=== PATIENT | female | born 1980 | race Two or more races ===

== ENCOUNTER 2020-04-16 04:21 | Day surgery (SDC) | payer BC, OTHER ==
[2020-04-15 11:56] VITALS: BMI 27.8
[2020-04-16] MEDS ORDERED: MIDAZOLAM HCL 2 MG/2 ML SINGLE DOSE VIAL ONE (11:49)
[2020-04-16] MEDS ORDERED: PROPOFOL 20 ML ONE ×2 (11:50)
[2020-04-16] MEDS ORDERED: KETOROLAC TROMETHAMINE 30 MG/1 ML VIAL ONE (11:51)
[2020-04-16] MEDS ORDERED: LIDOCAINE HCL/PF 2% SDV 5ML VIAL ONE (11:51)
[2020-04-16] MEDS ORDERED: DEXAMETHASONE SOD PHOSPHATE 4 MG/1 ML VIAL ONE (11:51)
[2020-04-16] MEDS ORDERED: ceFAZolin SODIUM 1 GM VIAL IVPB ONE (12:45)
[2020-04-16] MEDS ORDERED: ceFAZolin SODIUM 1 GM VIAL ONE (12:46)
[2020-04-16] MEDS ORDERED: EPHEDRINE SULFATE/0.9% NACL/PF 50 MG/10 ML SYRINGE NR ONE (13:12)
[2020-04-16] MEDS ORDERED: ONDANSETRON 4 MG/2 ML VIAL IVPUSH PRN (13:33)
[2020-04-16] MEDS ORDERED: ACETAMINOPHEN 500 MG TABLET (FP) PO PRN (13:33)
[2020-04-16] MEDS ORDERED: oxyCODONE HCL 5 MG TABLET PO PRN ×2 (13:33)
[2020-04-16] MEDS ORDERED: ACETAMINOPHEN 325 MG TABLET (FP) PO PRN (13:35)
[2020-04-16] MEDS ORDERED: IBUPROFEN 400 MG TABLET (FP) PO PRN (13:35)
--- NOTE | 2020-04-16 13:35 | OP ---
Operative Note - Note: Operative Date: 04/16/20 Pre-Operative Diagnosis: Menorrhagia. Polyps? Operation: Hysteroscopy. Polypectomies. D and C. Post-Operative Diagnosis: Same as Pre-op Surgeon: Jean Turcios Anesthesiologist/BROADCAST SUPERVISOR: Laura Nicholson Anesthesia: General Specimens Removed: Polyps and EMC. Estimated Blood Loss (mls): 20 Operative Report Dictated: Yes
[2020-04-16] MEDS ORDERED: LACTATED RINGERS SOLUTION 1,000 ML IV SCH (13:45)
--- NOTE | 2020-04-16 13:55 | OP ---
DATE OF OPERATION: DATE OF DICTATION: 04/16/2020 PREOPERATIVE DIAGNOSES: 1. Menorrhagia, dysfunctional uterine bleeding. 2. Endometrial hyperplasia, thick endometrial echo, suspecting polyps. OPERATION: 1. Hysteroscopy. 2. Polypectomies. 3. Dilation and curettage. SURGEON: Lesly Turcios MD ANESTHESIA: General LMA. ANESTHESIOLOGIST: Laura Nicholson MD PROCEDURE & FINDINGS: Under general anesthesia patient was examined. Uterus was upper normal size, anteverted. Adnexa were within normal limits. Following routine prep and drape, cervix was grasped with tenaculum and traction was applied. Os was gently dilated and hysteroscopy was carried out. Multiple polypoid structures were noted in the cavity. Both ostia were identified. Endocervical canal was within normal limits. Saline was allowed to escape from the uterus and os was dilated. Using stone forceps alternating with sharp curettage, multiple fragments of polyp were removed. Procedure was carried out until the uterine cavity was relatively empty. Post polypectomy and post curettage hysteroscopy showed minimal baseline remaines of the polyps, but otherwise cavity was empty. There was mild surface oozing which was to be expected. Procedure was accomplished without any difficulties. Curettage was done very gently not to affect future fertility. Patient was awakened and transferred to PACU comfortable and stable. Blood loss was less than 20 mL. LESLY TURCIOS MD [id number] MTDD
[2020-04-16 16:01] VITALS: BP 118/67; PULSE 77; TEMP 98.2
--- NOTE | 2020-04-17 11:40 | PATH ---
Surgical Pathology Report Patient Name: CLAUDIA CHAIDEZ [facility]. Rec. #: [id number] /Age/Gender: 1980 (Age: 40) / F Account: [id number] Location: [facility] SURGICAL Taken: 04/16/2020 Received: 04/16/2020 Reported: 04/17/2020 Physicians: Jean Turcios MD Specimen(s) Received UTERINE POLYP AND CURETTINGS Clinical History Leiomyoma of uterus Final Diagnosis ENDOMETRIAL CURETTINGS AND POLYPS: POLYPOID FRAGMENTS OF SECRETORY TYPE ENDOMETRIUM. Electronically Signed Redd Wilson M.D. Gross Description Received in formalin labeled "endometrial curettings and polyps," is a 3.0 x 2.8 x 0.3 cm aggregate of medrano red soft tissue fragments. The formalin is filtered and the specimen is entirely submitted in 2 cassettes. DL/04/16/2020 saudi/04/16/2020
== END 2020-04-16 15:50 | disposition home or self-care (01) ==
LOC: JASU-SURG 04:21
PROVIDERS: ATTEND Specialist
PROC: 0UDB7ZX Extraction of Endometrium, Via Natural or Artificial Opening, Diagnostic (ICD-10-PCS; 2020-04-16)
PROC: 0UJD8ZZ Inspection of Uterus and Cervix, Via Natural or Artificial Opening Endoscopic (ICD-10-PCS; 2020-04-16)
PROC: 0UB97ZX Excision of Uterus, Via Natural or Artificial Opening, Diagnostic (ICD-10-PCS; principal; 2020-04-16 12:00)
DX: N92.0 Excessive and frequent menstruation with regular cycle (principal); N84.0 Polyp of corpus uteri
CPT/HCPCS: 81025; 84703; 88305-TC; 94760

== ENCOUNTER 2020-10-01 04:14 | Day surgery (SDC) | payer BC, OTHER ==
[2020-09-30 08:58] VITALS: BMI 26.6
[2020-10-01] MEDS ORDERED: ROCURONIUM BROMIDE 50 MG/5 ML SYRINGE ONE (07:48)
[2020-10-01] MEDS ORDERED: PROPOFOL 20 ML ONE (07:48)
[2020-10-01] MEDS ORDERED: MIDAZOLAM HCL 2 MG/2 ML SINGLE DOSE VIAL ONE (07:48)
[2020-10-01] MEDS ORDERED: ONDANSETRON 4 MG/2 ML VIAL ONE (07:49)
[2020-10-01] MEDS ORDERED: DEXAMETHASONE SOD PHOSPHATE 4 MG/1 ML VIAL ONE (07:49)
[2020-10-01] MEDS ORDERED: KETOROLAC TROMETHAMINE 30 MG/1 ML VIAL ONE (07:49)
[2020-10-01] MEDS ORDERED: ONDANSETRON 4 MG/2 ML VIAL IVPUSH PRN ×2 (07:59→10:08)
[2020-10-01] MEDS ORDERED: LACTATED RINGERS SOLUTION 1,000 ML IV SCH (08:00)
[2020-10-01] MEDS ORDERED: ceFAZolin SODIUM 1 GM VIAL ONE (08:23)
[2020-10-01] MEDS ORDERED: ceFAZolin 2 GRAM PREMIX BAG IVPB ONE (08:24)
[2020-10-01] MEDS ORDERED: NEOSTIGMINE METHYLSULFATE 0.5 MG/1 ML - 10 ML MDV ONE (09:18)
[2020-10-01] MEDS ORDERED: GLYCOPYRROLATE 0.2 MG/1 ML VIAL ONE (09:18)
[2020-10-01] MEDS ORDERED: INDOCYANINE GREEN 25 MG/10 ML VIAL IVPUSH ONE (09:18)
[2020-10-01] MEDS ORDERED: KETOROLAC TROMETHAMINE 30 MG/1 ML VIAL IVPUSH PRN (10:08)
[2020-10-01] MEDS ORDERED: ACETAMINOPHEN 1000 MG/100 ML VIAL (NON FORMULARY) IVPB PRN (10:08)
[2020-10-01] MEDS ORDERED: BISACODYL 5 MG TABLET.DR (FP) PO PRN (10:08)
[2020-10-01] MEDS ORDERED: ACETAMINOPHEN 325 MG TABLET (FP) PO PRN (10:08)
[2020-10-01] MEDS ORDERED: DOCUSATE SODIUM 100 MG CAPSULE (FP) PO PRN (10:08)
[2020-10-01] MEDS ORDERED: SIMETHICONE 80 MG TAB.CHEW (FP) PO PRN (10:08)
[2020-10-01] MEDS ORDERED: oxyCODONE HCL 5 MG TABLET PO PRN (10:08)
[2020-10-01] MEDS ORDERED: SODIUM CHLORIDE 0.9% P/F 10 ML VIAL IJ ONE (10:37)
[2020-10-01 11:54] VITALS: TEMP 97.8
[2020-10-01 16:48] VITALS: BP 100/62; PULSE 56
== END 2020-10-01 15:00 | disposition home or self-care (01) ==
LOC: JASU-SURG 04:14 → JASUSAT 04:14
PROVIDERS: ATTEND Specialist
PROC: 3E0P8KZ Introduction of Other Diagnostic Substance into Female Reproductive, Via Natural or Artificial Opening Endoscopic (ICD-10-PCS; 2020-10-01)
PROC: 0UJD4ZZ Inspection of Uterus and Cervix, Percutaneous Endoscopic Approach (ICD-10-PCS; 2020-10-01)
PROC: 0UB98ZX Excision of Uterus, Via Natural or Artificial Opening Endoscopic, Diagnostic (ICD-10-PCS; principal; 2020-10-01 08:00)
PROC: 0UDB8ZX Extraction of Endometrium, Via Natural or Artificial Opening Endoscopic, Diagnostic (ICD-10-PCS; 2020-10-01 08:00)
PROC: 0U5B4ZZ Destruction of Endometrium, Percutaneous Endoscopic Approach (ICD-10-PCS; 2020-10-01 08:00)
DX: N92.0 Excessive and frequent menstruation with regular cycle (principal); N94.6 Dysmenorrhea, unspecified; N84.0 Polyp of corpus uteri; N97.9 Female infertility, unspecified; N80.0 Endometriosis of uterus; N80.3 Endometriosis of pelvic peritoneum; N73.6 Female pelvic peritoneal adhesions (postinfective)
CPT/HCPCS: 81025; 94760